=== PATIENT | female | born 1980 | race Caucasian/White ===

== ENCOUNTER 2017-07-02 09:04 | Outpatient (CLI) | payer OTHER ==
--- NOTE | 2017-07-02 10:58 | MMO ---
BILATERAL SCREENING MAMMOGRAM: History: 36-year-old female for baseline screening mammography. Patient has a maternal grandmother th at had breast cancer at the age of 29. FINDINGS: Bilateral MLO and CC views of the breast shows scattered fibroglandular breast tissue. There is no ev idence of suspicious mass, suspicious cluster of microcalcifications or area of architectural distort ion. This study is interpreted with the assistance of computer aided detection. IMPRESSION: BIRADS category 1 - negative. Annual screening mammography is recommended at the age of 40. POS: [facility]
== END 2017-07-02 09:05 | disposition home or self-care (01) ==
LOC: SCSMAMMO 09:04
PROVIDERS: ATTEND Family Medicine
DX: Z12.31 Encounter for screening mammogram for malignant neoplasm of breast (principal)
CPT/HCPCS: 77067